=== PATIENT | male | born 1975 | race Caucasian/White ===

== ENCOUNTER 2018-07-05 12:44 | Day surgery (SDC) | payer OTHER ==
[2018-07-05] VITALS (11 sets, daily range): BP systolic 114–143; BP diastolic 65–91; PULSE 68–91; TEMP 97.4–98.6
[~2018-07-05] VITALS: Ht 182.9 cm; Wt 83.3 kg
[~2018-07-05 12:44] MED LIST: AMBIEN CR 12.12.5 MG PO; FLEXERIL 1010 MG/TAB PO; LIPITOR 80MG80 MG PO; LOPID 600M600 MG/TAB PO; NAPROXEN 3375 MG/TAB PO; NORCO 325 MG-101 TAB PO; NORCO 325 MG-51 TAB PO; PRINZIDE 25 MG-1 TAB PO; PROTONIX 40MG T40 MG PO; REMERON30 MG PO; VIAGRA100 M1; ZOLOFT 100MG100 MG PO
[2018-07-05] MEDS ORDERED: QVAR REDIHALE10.6 G1 IH (13:34)
[2018-07-05] MEDS ORDERED: CATAFLAM50 MG PO (13:35)
[2018-07-05] MEDS ORDERED: TOPROL XL 50MG50 MG PO (13:39)
[2018-07-05] MEDS ORDERED: K-TAB20 PO (13:43)
[2018-07-05] MEDS ORDERED: ZANAFLEX 4MG TAB4 MG PO (13:43)
[2018-07-05] MEDS ORDERED: DESYREL 50MG50 MG PO (13:44)
[2018-07-05] MEDS ORDERED: ENSURE 237 ML237 ML PO (13:44)
[2018-07-06] VITALS (8 sets, daily range): BP systolic 87–162; BP diastolic 59–89; PULSE 58–75; TEMP 97.4–97.8
[2018-07-06 06:16] LABS: BASO % 0.3 % (0.0-2.0); EOS % 0.1 % (0-4.0); GRAN % 84.3 % (42.2-75.2); HEMATOCRIT 40.9 % (42.0-52.0); HEMOGLOBIN 13.5 g/dl (13.5-18.0); LYMPH # 0.9 (1.2-3.4); LYMPH % 7.3 % (20.0-51.0); MEAN CELL VOLUME 93 fl (80.0-100.0); MEAN CORPUSCULAR HEMOGLOBIN 31 pg (27.0-31.0); MEAN CORPUSCULAR HGB CONC 33 g/dl (33.0-37.0); MEAN PLATELET VOLUME 9.5 fl (7.4-10.4); MONO # 0.9 (0.1-0.6); MONO % 7.4 % (1.7-9.3); PLATELET COUNT 373 K/mm3 (130-400); RED BLOOD COUNT 4.42 M/mm3 (4.20-5.60); REDCELL DISTRIBUTION WIDTH-CV 13.1 % (11.5-14.5)
[2018-07-06 06:26] LABS: CALCIUM 9.3 mg/dL (8.4-10.2); CREATININE, serum 1.1 mg/dL (0.66-1.25); POTASSIUM 4.8 mmol/L (3.4-5.0)
[2018-07-06] MEDS ORDERED: NORCO 325 MG-101 TAB PO (14:56)
[2018-07-06] MEDS ORDERED: MOTRIN 600600 MG/TAB PO (14:56)
[2018-07-06] MEDS ORDERED: NEURONTIN100 MG/CAP PO (14:56)
[2018-07-06] MEDS ORDERED: COLACE 100100 MG/CAP PO (14:57)
== END 2018-07-06 18:32 | disposition home or self-care (01) ==
LOC: SDCO 12:44 → SURG 19:35 → SDCO 07-06 18:32
PROVIDERS: Surgery
DX: K43.9 Ventral hernia without obstruction or gangrene (principal); Z79.899 Other long term (current) drug therapy; G47.33 Obstructive sleep apnea (adult) (pediatric); F32.9 Major depressive disorder, single episode, unspecified; F41.9 Anxiety disorder, unspecified; F43.10 Post-traumatic stress disorder, unspecified; I10 Essential (primary) hypertension; G89.29 Other chronic pain; M54.5 Low back pain; E87.6 Hypokalemia; K21.9 Gastro-esophageal reflux disease without esophagitis; M25.512 Pain in left shoulder
CPT/HCPCS: OP; A4314; C1713; C1781; J0690; J1100; J1170; J1885; J2405; J2704; J3010; J7120

== ENCOUNTER → 2018-08-05 | Outpatient (CLI) | payer OTHER ==
[~2018-08-05] MED LIST changes: +CATAFLAM50 MG PO; +COLACE 100100 MG/CAP PO; +DESYREL 50MG50 MG PO; +ENSURE 237 ML237 ML PO; +K-TAB20 PO; +MOTRIN 600600 MG/TAB PO; +NEURONTIN100 MG/CAP PO; +QVAR REDIHALE10.6 G1 IH; +TOPROL XL 50MG50 MG PO; +ZANAFLEX 4MG TAB4 MG PO
== END ==
LOC: COL.RAD 10:59
DX: K76.0 Fatty (change of) liver, not elsewhere classified (principal); Z98.890 Other specified postprocedural states